=== PATIENT | male | born 1985 | race Caucasian/White ===

== ENCOUNTER 2017-07-21 18:40 | Emergency (ER) | payer MEDICAID ==
[~2017-07-21] VITALS: Ht 167.6 cm; Wt 84.4 kg
[2017-07-21 18:46] VITALS: BP 147/82
--- NOTE | 2017-07-21 18:49 | NUR ---
Patient ambulated to bed 07.
--- NOTE | 2017-07-21 18:56 | NUR ---
31/M C/O DIZZINESS SINCE NOON AND 04/20 HEADACHE, NONPROVOKED, NONRADIATING. HX HTN, HYPERLIPIDEMIA. RX LISINOPRIL. DENIES N/V/D; SKIN IS PINK/WARM/DRY; AAOX4 WITH EVEN AND STEADY GAIT; LUNGS CLEAR BL; HR EVEN AND REGULAR; PT DENIES ANY FEVER, CP, SOB, OR COUGH AT THIS TIME; PATIENT POSITIONED FOR COMFORT; HOB ELEVATED; BEDRAILS UP X2; BED DOWN. ER MD MADE AWARE OF PT STATUS.
--- NOTE | 2017-07-21 19:08 | NUR ---
Patient being evaluated by physician at bedside.
[2017-07-21] MEDS ORDERED: KETOROLAC 60 MG/2 ML VIAL IM ONE (20:20)
--- NOTE | 2017-07-21 20:25 | NUR ---
TORADOL 60 MG IM GIVEN ORDERED.
[2017-07-21 21:00] VITALS: BP 127/83
== END 2017-07-21 20:50 | disposition home or self-care (01) ==
LOC: MED 18:40
DX: R51 Headache (principal); R42 Dizziness and giddiness; F17.200 Nicotine dependence, unspecified, uncomplicated; I10 Essential (primary) hypertension; E78.5 Hyperlipidemia, unspecified
CPT/HCPCS: 70450; 93005; 96372; 99284; J1885